=== PATIENT | female | born 1975 | race Caucasian/White ===

== ENCOUNTER → 2016-04-21 | Outpatient (CLI) | payer BC ==
[~2016-04-21] VITALS: Ht 153.7 cm; Wt 98.7 kg
[~2016-04-21] MED LIST: ADIPEX-P37.5 MG PO; IRON325 M2 PO; PRENATAL FORMU1 EAC3 PO; SYNTHROID 0.10.15 MG PO; VITAMIN D 50,1.25 MG PO; ZOLOFT 100MG100 MG PO
[2016-04-21 15:39] VITALS: BP 116/64; PULSE 83
[2016-04-21 16:20] VITALS: BP 116/64; PULSE 83
== END ==
LOC: LIGHT 09:25
DX: E66.01 Morbid (severe) obesity due to excess calories (principal); Z98.84 Bariatric surgery status; E03.8 Other specified hypothyroidism; Z68.41 Body mass index [BMI] 40.0-44.9, adult

== ENCOUNTER → 2016-05-02 | Outpatient (CLI) | payer BC | LOC: COL.RAD 08:05 | DX: D48.1 Neoplasm of uncertain behavior of connective and other soft tissue (principal); K44.9 Diaphragmatic hernia without obstruction or gangrene; Z90.49 Acquired absence of other specified parts of digestive tract; K57.30 Diverticulosis of large intestine without perforation or abscess without bleeding; R10.84 Generalized abdominal pain; Z98.84 Bariatric surgery status | CPT/HCPCS: Q9967 ==

== ENCOUNTER → 2016-05-06 | Outpatient (CLI) | payer BC | LOC: LIGHT 13:28 | DX: E66.01 Morbid (severe) obesity due to excess calories (principal); Z68.41 Body mass index [BMI] 40.0-44.9, adult; Z98.84 Bariatric surgery status; E03.8 Other specified hypothyroidism ==

== ENCOUNTER → 2016-06-02 | Outpatient (CLI) | payer BC ==
[~2016-06-02] VITALS: Ht 153.7 cm; Wt 98.9 kg
[2016-06-02 15:13] VITALS: BP 109/57; PULSE 75
== END ==
LOC: LIGHT 14:35
DX: E66.01 Morbid (severe) obesity due to excess calories (principal); E03.8 Other specified hypothyroidism; Z68.41 Body mass index [BMI] 40.0-44.9, adult; Z98.84 Bariatric surgery status

== ENCOUNTER → 2016-07-03 | Outpatient (CLI) | payer BC ==
[~2016-07-03] VITALS: Ht 153.7 cm; Wt 98.9 kg
[2016-07-03 14:51] VITALS: BP 120/63; PULSE 74
== END ==
LOC: LIGHT 14:50
DX: Z02.89 Encounter for other administrative examinations (principal)

== ENCOUNTER → 2016-08-07 | Outpatient (CLI) | payer BC ==
[~2016-08-07] VITALS: Ht 153.7 cm; Wt 98.2 kg
[2016-08-07 13:59] VITALS: BP 122/59; PULSE 74
== END ==
LOC: LIGHT 11:54
DX: E66.01 Morbid (severe) obesity due to excess calories (principal); Z68.41 Body mass index [BMI] 40.0-44.9, adult; Z71.3 Dietary counseling and surveillance; Z98.84 Bariatric surgery status; E03.9 Hypothyroidism, unspecified

== ENCOUNTER → 2016-09-04 | Outpatient (CLI) | payer BC ==
[~2016-09-04] VITALS: Ht 153.7 cm; Wt 95.7 kg
[2016-09-04 14:33] VITALS: BP 122/71; PULSE 90
== END ==
LOC: LIGHT 14:30
DX: E66.01 Morbid (severe) obesity due to excess calories (principal); Z68.41 Body mass index [BMI] 40.0-44.9, adult; Z71.3 Dietary counseling and surveillance; Z98.84 Bariatric surgery status; E03.9 Hypothyroidism, unspecified